=== PATIENT | female | born 1955 | race Caucasian/White ===

== ENCOUNTER 2018-06-24 20:06 | Emergency (ER) | payer BC ==
--- NOTE | 2018-06-24 20:37 | EDM.PDOC ---
ED HPI GENERAL MEDICAL PROBLEM - General Chief Complaint: Chest Pain Stated Complaint: CHEST PAIN Time Seen by Provider: 06/24/18 20:37 Source of Information: Reports: Patient - History of Present Illness INITIAL COMMENTS - FREE TEXT/NARRATIVE: [facility] intermittent left- sided chest pain for the last 24 hours. She states it occurred just before bed last night around 10 PM. She reports that it is stabbing in nature, and then varies between aching and pressure. She states is on the left side of her chest , just of breath the breast. Does not radiate. She denies any nausea, diaphoresis or feeling of impending doom. She is not sure if anything makes the pain better. Movement and lifting does make the pain worse. She feels that earlier today she wasn't having the pain, she was at dinner tonight and pain got worse she came to the emergency room. She reports pain is minimal now as she is sitting in the stretcher not moving. Has a history of hypertension, is on lisinopril. Borderline prediabetic but is not on medication for this. PCP is Marion William in [place]. 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 Left Chest Pain Score (Numeric/FACES): 8 - Related Data Allergies Allergy/AdvReac Type Severity Reaction Status Date / Time No Known Allergies Allergy Verified 06/24/18 20:16 Home Meds: Home Meds Albuterol [Proventil HFA] 2 puff INH QID PRN 06/24/18 [History] Cholecalciferol (Vitamin D3) [Vitamin D3] 1,000 unit PO DAILY 06/24/18 [History] Docusate Sodium [Colace] 100 mg PO BID 06/24/18 [History] Fluticasone/Salmeterol [Advair 250-50 Diskus] 1 dose IH BID 06/24/18 [History] Lisinopril/Hydrochlorothiazide [Lisinopril-Hctz 20-12.5 mg Tab] 1 each PO DAILY 06/24/18 [History] Zafirlukast [Accolate] 20 mg PO BID 06/24/18 [History] metFORMIN [Glucophage] 500 mg PO BIDMEALS 06/24/18 [History] Past Medical History Cardiovascular History: Reports: Hypertension Endocrine/Metabolic History: Reports: Diabetes, Type II - Past Surgical History Female Surgical History: Reports: Tubal Ligation Neurological Surgical History: Reports: C-Spine Musculoskeletal Surgical History: Reports: Carpal Tunnel, Hip Replacement, Knee Replacement Social & Family History - Tobacco Use Smoking Status *Q: Never Smoker - Caffeine Use Caffeine Use: Reports: None - Recreational Drug Use Recreational Drug Use: No ED ROS GENERAL - Review of Systems Review Of Systems: See Below Constitutional: Reports: No Symptoms HEENT: Reports: No Symptoms Respiratory: Denies: Shortness of Breath, Wheezing, Cough Cardiovascular: Reports: Chest Pain, Blood Pressure Problem. Denies: Edema, Lightheadedness, Syncope GI/Abdominal: Reports: No Symptoms : Reports: No Symptoms Musculoskeletal: Reports: Other Skin: Reports: No Symptoms Neurological: Reports: No Symptoms ED EXAM, GENERAL - Physical Exam Exam: See Below Exam Limited By: No Limitations General Appearance: Alert, WD/WN, No Apparent Distress Throat/Mouth: Normal Inspection, Normal Oropharynx Neck: Normal Inspection, Supple, Non-Tender Respiratory/Chest: No Respiratory Distress, Lungs Clear, Normal Breath Sounds Cardiovascular: Normal Peripheral Pulses, Regular Rate, Rhythm, No Edema, No Murmur Peripheral Pulses: 2+: Popliteal (L), Popliteal (R) GI/Abdominal: Normal Bowel Sounds, Soft, Non-Tender Extremities: Other (Tenderness to left upper chest and into the left axilla.) Neurological: Alert, Oriented Psychiatric: Normal Affect, Normal Mood Skin Exam: Warm, Dry, Intact Lymphatic: No Adenopathy EKG INTERPRETATION EKG Date: 06/24/18 Time: 20:13 Rhythm: NSR EKG Interpretation Comments: Reviewed with Dr Kat Course - Vital Signs Last Recorded V/S: Last Vital Signs Temp 97.1 F 06/24/18 20:14 Pulse 71 06/24/18 20:14 Resp 18 06/24/18 20:14 BP 134/73 06/24/18 20:14 Pulse Ox 100 06/24/18 20:14 - Orders/Labs/Meds Orders: Active Orders 24 hr Category Date Time Status EKG 12 Lead [EKG Documentation Completion] [RC] STAT Care 06/24/18 20:37 Active Ang Chest [CT] Stat Exams 06/24/18 21:15 Ordered CXR [Chest 2V] [CR] Stat Exams 06/24/18 20:37 Taken Sodium Chloride 0.9% [Normal Saline] 100 ml Med 06/24/18 21:30 Active IV ASDIRECTED Medication Orders Sodium Chloride (Normal Saline) 100 mls @ 4 mls/sec IV ASDIRECTED MINERVA Labs: Laboratory Tests 06/24/18 06/24/18 06/24/18 Range/Units 20:24 20:24 20:24 WBC 9.95 (3.98-10.04) K/mm3 RBC 4.94 (3.98-5.22) M/mm3 Hgb 13.9 (11.2-15.7) gm/L Hct 42.8 (34.1-44.9) % MCV 86.6 (79.4-94.8) fl MCH 28.1 (25.6-32.2) pg MCHC 32.5 (32.2-35.5) g/dl RDW Std Deviation 41.9 (36.4-46.3) fL Plt Count 326 (182-369) K/mm3 MPV 9.9 (9.4-12.3) fl Neutrophils % (Manual) 69 H (40-60) % Band Neutrophils % 0 (0-10) % Lymphocytes % (Manual) 24 (20-40) % Atypical Lymphs % 0 % Monocytes % (Manual) 6 (2-10) % Eosinophils % (Manual) 1 (0.7-5.8) % Basophils % (Manual) 0 L (0.1-1.2) Platelet Estimate Adequate RBC Morph Comment Normal D-Dimer, Quantitative 8.44 H (0.19-0.50) mg/L Sodium (136-145) mEq/L Potassium (3.5-5.1) mEq/L Chloride (98-107) mEq/L Carbon Dioxide (21-32) mEq/L Anion Gap (5-15) BUN (7-18) mg/dL Creatinine (0.55-1.02) mg/dL Est Cr Clr Drug Dosing mL/min Estimated GFR (MDRD) (>60) mL/min BUN/Creatinine Ratio (14-18) Glucose (80-115) mg/dL Calcium (8.5-10.1) mg/dL Magnesium 1.7 L (1.8-2.4) mg/dl Total Bilirubin (0.2-1.0) mg/dL AST (15-37) U/L ALT (14-59) U/L Alkaline Phosphatase (46-116) U/L Troponin I (0.00-0.056) ng/mL C-Reactive Protein (<1.0) mg/dL Total Protein (6.4-8.2) g/dl Albumin (3.4-5.0) g/dl Globulin gm/dL Albumin/Globulin Ratio (1-2) Urine Color (Yellow) Urine Appearance (Clear) Urine pH (5.0-8.0) Ur Specific Magnolia (1.005-1.030) Urine Protein (Negative) Urine Glucose (UA) (Negative) Urine Ketones (Negative) Urine Occult Blood (Negative) Urine Nitrite (Negative) Urine Bilirubin (Negative) Urine Urobilinogen (0.2-1.0) Ur Leukocyte Esterase (Negative) Urine RBC (0-5) /hpf Urine WBC (0-5) /hpf Ur Epithelial Cells (0-5) /hpf Urine Bacteria (FEW) /hpf Urine Mucus (FEW) /hpf 06/24/18 06/24/18 Range/Units 20:24 21:29 WBC (3.98-10.04) K/mm3 RBC (3.98-5.22) M/mm3 Hgb (11.2-15.7) gm/L Hct (34.1-44.9) % MCV (79.4-94.8) fl MCH (25.6-32.2) pg MCHC (32.2-35.5) g/dl RDW Std Deviation (36.4-46.3) fL Plt Count (182-369) K/mm3 MPV (9.4-12.3) fl Neutrophils % (Manual) (40-60) % Band Neutrophils % (0-10) % Lymphocytes % (Manual) (20-40) % Atypical Lymphs % % Monocytes % (Manual) (2-10) % Eosinophils % (Manual) (0.7-5.8) % Basophils % (Manual) (0.1-1.2) Platelet Estimate RBC Morph Comment D-Dimer, Quantitative (0.19-0.50) mg/L Sodium 140 (136-145) mEq/L Potassium 3.7 (3.5-5.1) mEq/L Chloride 100 (98-107) mEq/L Carbon Dioxide 32 (21-32) mEq/L Anion Gap 11.7 (5-15) BUN 14 (7-18) mg/dL Creatinine 0.7 (0.55-1.02) mg/dL Est Cr Clr Drug Dosing 71.96 mL/min Estimated GFR (MDRD) > 60 (>60) mL/min BUN/Creatinine Ratio 20.0 H (14-18) Glucose 108 (80-115) mg/dL Calcium 10.0 (8.5-10.1) mg/dL Magnesium (1.8-2.4) mg/dl Total Bilirubin 0.1 L (0.2-1.0) mg/dL AST 15 (15-37) U/L ALT 22 (14-59) U/L Alkaline Phosphatase 92 (46-116) U/L Troponin I < 0.017 (0.00-0.056) ng/mL C-Reactive Protein 0.5 (<1.0) mg/dL Total Protein 8.4 H (6.4-8.2) g/dl Albumin 3.6 (3.4-5.0) g/dl Globulin 4.8 gm/dL Albumin/Globulin Ratio 0.8 L (1-2) Urine Color Yellow (Yellow) Urine Appearance Slt cloudy H (Clear) Urine pH 6.5 (5.0-8.0) Ur Specific Magnolia 1.020 (1.005-1.030) Urine Protein Negative (Negative) Urine Glucose (UA) Negative (Negative) Urine Ketones Negative (Negative) Urine Occult Blood Negative (Negative) Urine Nitrite Negative (Negative) Urine Bilirubin Negative (Negative) Urine Urobilinogen 0.2 (0.2-1.0) Ur Leukocyte Esterase Trace H (Negative) Urine RBC 0-5 (0-5) /hpf Urine WBC 0-5 (0-5) /hpf Ur Epithelial Cells 0-5 (0-5) /hpf Urine Bacteria Few (FEW) /hpf Urine Mucus Few (FEW) /hpf Meds: Medications Generic Name Dose Route Start Last Admin Trade Name Freq PRN Reason Stop Dose Admin Sodium Chloride 100 mls @ 4 mls/sec 06/24/18 21:30 Normal Saline IV ASDIRECTED MINERVA Discontinued Medications Generic Name Dose Route Start Last Admin Trade Name Freq PRN Reason Stop Dose Admin Iopamidol 100 ml 06/24/18 21:22 Isovue-370 (76%) IVPUSH 12/29/18 21:23 ONETIME ONE Iopamidol 40 ml 06/24/18 21:22 Isovue-370 (76%) IVPUSH 06/24/18 21:23 ONETIME ONE Ketorolac Tromethamine 30 mg 06/24/18 21:04 06/24/18 21:16 Toradol IVPUSH 06/24/18 21:05 30 mg ONETIME ONE Administration - Re-Assessments/Exams Free Text/Narrative Re-Assessment/Exam: CBC/CMP unremarkable. Troponin is negative. D-dimer is elevated 8.44. Will get a CT of her chest to further evaluate. 06/24/18 21:16 CT demonstrates no pulmonary emboli. She does have a 5.5 mm circumscribed pulmonary nodule in the left lower lobe. This is borderline for the measurement to repeat CT in 6-12 months to monitor. Patient will discuss this further with her PCP. Chest pain has completely resolved with the ketorolac. With the mono tenderness she had an exam, I suspect that this was musculoskeletal in etiology. recommend that she maximize her fluid intake to flush the CT dye out especially with the metformin. Patient will follow up with her PCP next week or return to the emergency room if needed. 06/24/18 22:05 Departure - Departure Time of Disposition: 22:06 Disposition: Home, Self-Care 01 Condition: Good Clinical Impression: Chest pain, Elevated d-dimer, Left lower lobe pulmonary nodule, Chest wall tenderness Instructions: Pulmonary Nodule, [id number], Chest Wall Pain, [id number] Referrals: Marion William PA [Primary Care Provider] - Forms: ED Department Discharge Additional Instructions: You were evaluated in the emergency department today for chest pain. The heart workup was negative. The initial screening for clot was positive, however CT confirmed that you do not have any clots in your lung. You do however have a very small nodule in your lung. I recommend that you discuss this with your PCP, you may consider repeating a CT in 6-12 months. Take it easy the next few days, activity as tolerated. Use Tylenol or ibuprofen as needed for pain. Drink lots of water/fluids to flush the diarrhea kidneys. Follow-up with her primary provider next week or return to the emergency room for any new or worsening symptoms. - My Orders Last 24 Hours: My Active Orders 06/24/18 20:37 EKG 12 Lead [EKG Documentation Completion] [RC] STAT CXR [Chest 2V] [CR] Stat 06/24/18 21:15 Ang Chest [CT] Stat 06/24/18 21:30 Sodium Chloride 0.9% [Normal Saline] 100 ml IV ASDIRECTED - Assessment/Plan Last 24 Hours: My Active Orders 06/24/18 20:37 EKG 12 Lead [EKG Documentation Completion] [RC] STAT CXR [Chest 2V] [CR] Stat 06/24/18 21:15 Ang Chest [CT] Stat 06/24/18 21:30 Sodium Chloride 0.9% [Normal Saline] 100 ml IV ASDIRECTED
[2018-06-24] MEDS ORDERED: Ketorolac 30 MG/ML SDV IVPUSH ONE (21:04)
[2018-06-24] MEDS ORDERED: Iopamidol 755 Mg/ML 100 ML Bottle IVPUSH ONE (21:22)
[2018-06-24] MEDS ORDERED: Iopamidol 755 MG/ML 50 ML Bottle IVPUSH ONE (21:22)
[2018-06-24] MEDS ORDERED: Sodium Chloride 0.9% 100 ML IV SCH (21:30)
--- NOTE | 2018-06-25 08:44 | CR ---
Chest: Two views of the chest were obtained. Comparison: No prior chest x-ray. Heart size and mediastinum are within normal limits. Nodule is identified within the left upper lung measuring about 5 mm. Lungs otherwise are clear. Previous cervical spine surgery is noted. Slight degenerative change is noted within the mid to lower thoracic spine. Impression: 1. Nodule within the left upper chest. Noncontrast chest CT recommended to further evaluate. 2. Other incidental findings. No acute abnormality is otherwise seen. Diagnostic code #9
--- NOTE | 2018-06-25 13:54 | CT ---
CT chest Technique: Multiple axial sections through the chest were obtained. Intravenous contrast was utilized. Study was performed as a pulmonary angiogram protocol. Comparison: Prior chest x-ray performed earlier on the same day (8:56 PM). Findings: Nodule noted within the left upper chest on prior chest x-ray correlates to a calcified granuloma. Mediastinum and hilar regions show no adenopathy. No pericardial thickening or pericardial fluid is seen. Small portion of the visualized upper abdominal structures appear within normal limits. Noncalcified nodule is noted within the left lung base measuring 6 mm in size most likely due to additional granuloma which is noncalcified. Lungs otherwise are clear. No pleural effusions are seen. Pulmonary arteries are fairly well-opacified and show no filling defects to indicate pulmonary embolism. Bone window settings were reviewed which show scattered degenerative endplate spurring within the spine. No acute osseous abnormality is identified. There is an old healed right lower rib fracture being seen which is within the 10th rib. Impression: 1. Calcified granuloma within the left upper chest correlating to chest x-ray nodule. Additional 6 mm noncalcified nodule noted within the left lung base. This finding is most likely due to noncalcified granuloma although follow-up noncontrast chest CT could be considered in one year to confirm stability. 2. No findings of pulmonary embolism. 3. Other incidental findings. Diagnostic code #9 I agree with preliminary report from [facility], finalized on 06/24/18, 10:54 PM Central Time
== END 2018-06-24 22:17 | disposition home or self-care (01) ==
LOC: JD.ED 20:06
DX: R07.89 Other chest pain (principal); R91.1 Solitary pulmonary nodule; R79.1 Abnormal coagulation profile; E11.9 Type 2 diabetes mellitus without complications; I10 Essential (primary) hypertension; Z79.899 Other long term (current) drug therapy; Z79.84 Long term (current) use of oral hypoglycemic drugs
CPT/HCPCS: 36415; 71046; 71275; 80053; 81001; 83735; 84484; 85007; 85027; 85379; 86140; 93005; 96374; 99285; J1885